=== PATIENT | male | born 1970 | race Caucasian/White ===

== ENCOUNTER 2020-12-10 00:21 | Emergency (ER) | payer OTHER ==
[~2020-12-10] VITALS: Ht 172.7 cm; Wt 70.5 kg
[2020-12-10 00:24] VITALS: BP 156/100
[2020-12-10] MEDS ORDERED: LIDOCAINE 1% 10 ML VIAL ID ONE (01:45)
[2020-12-10] MEDS ORDERED: PERTUSS(ACELL),DIPH,TET VAC/PF 0.5 ML SYRINGE IM. ONE (01:45)
[2020-12-10] MEDS ORDERED: AMOX TR/POT CLAV 875 MG/125 MG TABLET PO ONE (01:45)
[2020-12-10] MEDS ORDERED: RABIES VACCINE (PCEC)/PF 2.5 UNITS/ML SYRINGE IM. ONE (02:45)
[2020-12-10] MEDS ORDERED: RABIES IMMUNE GLOBULIN/PF 300 UNITS/ML 5 ML VIAL IM. ONE (02:45)
== END 2020-12-10 03:30 | disposition home or self-care (01) ==
LOC: EMS 00:27
DX: S61.211A Laceration without foreign body of left index finger without damage to nail, initial encounter (principal); S61.032A Puncture wound without foreign body of left thumb without damage to nail, initial encounter; W54.0XXA Bitten by dog, initial encounter; Y93.89 Activity, other specified; Y92.89 Other specified places as the place of occurrence of the external cause; Y99.8 Other external cause status
CPT/HCPCS: 12002; 90375; 90471; 90472; 90675; 90715; 96372; 99284; J3490